=== PATIENT | female | born 2000 | race Caucasian/White ===

== ENCOUNTER 2022-07-24 07:56 | Outpatient (CLI) | payer BC | END 2022-07-24 07:57 | disposition home or self-care (01) | LOC: CSHULT 07:56 | PROVIDERS: ATTEND Internal Medicine Gastroenterology | DX: R10.32 Left lower quadrant pain (principal); R10.31 Right lower quadrant pain; R63.0 Anorexia | CPT/HCPCS: 74246; 76700 ==